=== PATIENT | male | born 1950 | race Caucasian/White ===

== ENCOUNTER 2023-04-02 13:05 | Outpatient (RCR) | payer MEDICARE, SELFPAY ==
--- NOTE | 2023-04-08 11:38 | OPREHPOC ---
Outpatient Therapy Plan of Care This is a Multidisciplinary Plan of Care that may contain components documented by all disciplines (PT, OT, and ST.) PT Problem 1 PT Problem #1 Knowledge Deficit PT Goal 1 Goal 1. independent and compliant with HEP Target Visit 6 PT Problem 2 PT Problem #2 Pain PT Goal 1 Goal 1. decrease pain to 4/10 or less in the R knee Target Visit 12 PT Goal 2 Goal 1. no pain in the R knee PT Problem 3 PT Problem #3 Impaired Range of Motion PT Goal 1 Goal 1. 0-120 degrees active R knee mobility. Target Visit 12 PT Problem 4 PT Problem #4 Impaired Strength PT Goal 1 Goal 1. patient to display no extension lag of the R hip during SLR 2. 4/5 R hip flexion 3. 4+/5 or better R knee flexion and extension Target Visit 12 PT Problem 5 PT Problem #5 Impaired Functional Mobil PT Goal 1 Goal 1. patient to transition to cane or less AD for ambulation 2. patient to ambulate with reciprocal mechanics and equal stance time/weight bearing 3. patient to ambulate up and down steps with reciprocal mechanics 4. patient to complete 6 minute walk test for 800ft or more without sitting rest Target Visit 12
--- NOTE | 2023-04-08 11:38 | PTOPEVAL1 ---
Assessment and note entered by JT File, PT Evaluation Information Assessment Status Evaluation Diagnosis OA of R knee, s/p R TKA Subjective Information patient had surgery on the R knee on 03/29/23. he reports since surgery he has had pain in the R knee, stiffness in the R knee, and difficulty walking. he reports he isl taking oxycodone for pain. he reports prior to surgery he was having difficulty walking. Assessment PT Clinical Summary mr. washburn is a 72 yo man who presents to skilled PT for evaluation and treatment s/p R TKA. he presents today jt swelling, pain, decreased R knee rom, decreased strength, and abnormal gait mechanics. he would like to get back to walking without an AD, and with no pain. he would benefit from continued skilled PT to address his objective /funcitonal defcits and progress towards a return to his prior level functional activity performance and quality of life. Plan of Care Interventions Electrical Stimulation,Gait Training,Hot Pack/Cold Pack,Intermittent Compression,Manual Therapy, Neuro Re-education,Patient/Caregiver Educati, Therapeutic Activities,Therapeutic Exercise PT Services Indicated Yes Treatment Frequency and 3x weekly for 12 visits Duration These treatments will address the objective and functional deficits as defined above. The patient will be advanced safely and appropriately in order for the patient to progress towards his/her prior level of function. Additional exercises will be introduced and as well as a comprehensive home exercise program upon discharge, if needed, ?to ensure carryover of functional gains achieved in the clinic. This treatment plan has been reviewed and agreement upon by the patient.
--- NOTE | 2023-04-29 07:22 | OPREHPOC ---
Outpatient Therapy Plan of Care This is a Multidisciplinary Plan of Care that may contain components documented by all disciplines (PT, OT, and ST.) PT Problem 1 PT Problem #1 Knowledge Deficit PT Goal 1 Goal 1. independent and compliant with HEP Target Visit 6 Progress Met PT Problem 2 PT Problem #2 Pain PT Goal 1 Goal 1. decrease pain to 4/10 or less in the R knee Target Visit 12 Progress Met PT Goal 2 Goal 1. no pain in the R knee Progress Not Met PT Problem 3 PT Problem #3 Impaired Range of Motion PT Goal 1 Goal 1. 0-120 degrees active R knee mobility. Target Visit 12 Progress Not Met PT Problem 4 PT Problem #4 Impaired Strength PT Goal 1 Goal 1. patient to display no extension lag of the R hip during SLR 2. 4/5 R hip flexion 3. 4+/5 or better R knee flexion and extension Target Visit 12 Progress Partially Met PT Problem 5 PT Problem #5 Impaired Functional Mobil PT Goal 1 Goal 1. patient to transition to cane or less AD for ambulation 2. patient to ambulate with reciprocal mechanics and equal stance time/weight bearing 3. patient to ambulate up and down steps with reciprocal mechanics 4. patient to complete 6 minute walk test for 800ft or more without sitting rest Target Visit 12 Progress Partially Met
--- NOTE | 2023-04-29 07:22 | PTOPPROGNS ---
Assessment and note entered by JT File, PT Evaluation Information Assessment Status Progress Diagnosis OA of R knee, s/p R TKA Subjective Information patient reports he is feeling better lately. he reports his pain is much more managed. he reports he only has increased pain in the R knee withe bending. Assessment PT Clinical Summary mr. washburn presents to skilled PT services for his 10th skilled PT visit today. he displas improved rom, improved strength, progression in gait mechanics, and decreased pain. however, he still lacks goals for R knee active rom, R LE strength, gait mechanics, and functional transition of steps . he would benefit from continued skilled PT to improve his objective/functional deficits and achieve all goals for skilled PT to improve his quality of life and funcitonal independence/ activity performance. Plan of Care Interventions Electrical Stimulation,Gait Training,Hot Pack/Cold Pack,Intermittent Compression,Manual Therapy, Neuro Re-education,Patient/Caregiver Educati, Therapeutic Activities,Therapeutic Exercise PT Services Indicated Yes Treatment Frequency and continue skilled PT per initial POC Duration These treatments will address the objective and functional deficits as defined above. The patient will be advanced safely and appropriately in order for the patient to progress towards his/her prior level of function. Additional exercises will be introduced and as well as a comprehensive home exercise program upon discharge, if needed, ?to ensure carryover of functional gains achieved in the clinic. This treatment plan has been reviewed and agreement upon by the patient.
--- NOTE | 2023-05-03 10:41 | PTOPEVAL1 ---
Assessment and note entered by Jerry Tanner Evaluation Information Assessment Status Progress Diagnosis OA of right knee, s/p R TKA Subjective Information Pt. reports that he is doing better, but was given a steroid from Dr. Chang last week. He states that he still gets twinges of pain, but he is improving. He is no longer using an AD. He states that he is still concerned with his inability to bend and straighten the knee and states that he would like to continue to improve ROM. Reported Pain Level Pain Score 1: Self Report Assessment PT Clinical Summary Mr. Blackwell has attended a total of 12 PT sessions. In this time progress has been noted in gait mechanics, strength and right knee ROM. Despite these improvements he continues to present with limitations in strength and ROM. Recommend continued skilled PT at a decreased frequency to continue to improve mobility and optimize gait for improved IADL performance. Plan of Care Interventions Electrical Stimulation,Gait Training,Hot Pack/Cold Pack,Intermittent Compression,Manual Therapy, Neuro Re-education,Patient/Caregiver Educati, Therapeutic Activities,Therapeutic Exercise PT Services Indicated Yes Treatment Frequency and Continue treatment 2x/week x 8 visits focusing on Duration further ROM presybeterian and imrpoving stair navigation and gait. These treatments will address the objective and functional deficits as defined above. The patient will be advanced safely and appropriately in order for the patient to progress towards his/her prior level of function. Additional exercises will be introduced and as well as a comprehensive home exercise program upon discharge, if needed, ?to ensure carryover of functional gains achieved in the clinic. This treatment plan has been reviewed and agreement upon by the patient.
--- NOTE | 2023-05-18 10:49 | OPREHPOC ---
Outpatient Therapy Plan of Care This is a Multidisciplinary Plan of Care that may contain components documented by all disciplines (PT, OT, and ST.) PT Problem 1 PT Problem #1 Knowledge Deficit PT Goal 1 Goal 1. independent and compliant with HEP Target Visit 6 Progress Met PT Problem 2 PT Problem #2 Pain PT Goal 1 Goal 1. decrease pain to 4/10 or less in the R knee Target Visit 12 Progress Met PT Goal 2 Goal 1. no pain in the R knee Progress Met PT Problem 3 PT Problem #3 Impaired Range of Motion PT Goal 1 Goal 1. 0-120 degrees active R knee mobility. Target Visit 12 Progress Partially Met Comment met for flexion PT Problem 4 PT Problem #4 Impaired Strength PT Goal 1 Goal 1. patient to display no extension lag of the R hip during SLR 2. 4/5 R hip flexion 3. 4+/5 or better R knee flexion and extension Target Visit 12 Progress Met PT Problem 5 PT Problem #5 Impaired Functional Mobil PT Goal 1 Goal 1. patient to transition to cane or less AD for ambulation 2. patient to ambulate with reciprocal mechanics and equal stance time/weight bearing 3. patient to ambulate up and down steps with reciprocal mechanics 4. patient to complete 6 minute walk test for 800ft or more without sitting rest Target Visit 12 Progress Met
--- NOTE | 2023-05-18 10:51 | PTOPDC ---
Assessment and note entered by Janet Fonseca DPT Evaluation Information Assessment Status Re-evaluation Diagnosis OA of right knee, s/p R TKA Subjective Information Patient reports this will be his last visit due to having finger surgery and then undergoing L TKA on 06/29/23. He reports he is improving and is not using an AD . He reports he notices stiffness with stairs. He reports he is independent with HEP Reported Pain Level Pain Score 0: Self Report Pain Score 1: Self Report Assessment PT Clinical Summary Mr. Blackwell was seen for 17 visits of skilled PT with great progress towards goals. He met all goals except for extension ROM. He ambulates with no AD and demonstrates step over step stair navigation. He is independent with HEP and will be discharged at this time. Plan of Care PT Services Indicated No
== END 2023-05-18 11:33 | disposition home or self-care (01) ==
LOC: CHSPT 13:05
PROVIDERS: PCP Family Medicine; Visit Provider Orthopaedic Surgery
DX: M17.11 Unilateral primary osteoarthritis, right knee (principal)
CPT/HCPCS: 97014; 97016; 97110; 97116; 97140; 97161; 97530; G0283

== ENCOUNTER 2023-07-02 09:31 | Outpatient (RCR) | payer MEDICARE, SELFPAY ==
--- NOTE | 2023-07-02 10:16 | OPREHPOC ---
Outpatient Therapy Plan of Care This is a Multidisciplinary Plan of Care that may contain components documented by all disciplines (PT, OT, and ST.) PT Problem 1 PT Problem #1 Knowledge Deficit PT Goal 1 Goal 1. independent and compliant with HEP Target Visit 6 PT Problem 2 PT Problem #2 Pain PT Goal 1 Goal 1. decrease pain at worst to 4/10 in the L knee. Target Visit 12 PT Problem 3 PT Problem #3 Impaired Range of Motion PT Goal 1 Goal 1. 0-120 degrees active L knee mobility Target Visit 12 PT Problem 4 PT Problem #4 Impaired Strength PT Goal 1 Goal 1. 4+/5 or better L knee strength 2. 5/5 L ankle DF 3. 3+/5 L hip strength or better 4. patient able to perform SLR of the L LE in supine with knee extension lag Target Visit 12 PT Problem 5 PT Problem #5 Impaired Functional Mobil PT Goal 1 Goal 1. transition to cane for ambulation Target Visit 6 PT Goal 2 Goal 1. patient to ambulate without any AD 2. normal gait mechanics 3. reciprocal gait mechanics up and down 12 steps with 1 hand rail 4. less than 20 degrees tightness of the L hamstrings 5. LEFS to display less than 40% functional deficits Target Visit 12
--- NOTE | 2023-07-02 10:17 | PTOPEVAL1 ---
Assessment and note entered by JT File, PT Evaluation Information Assessment Status Evaluation Diagnosis s/p L TKA Onset 06/28/23 Subjective Information patient underwent L TKA on 06/28/23. he reports he has not been doing much since surgery, but reports yesterday he did begin pushing the knee straight, performing glute sets, ankle pumps, and heel slides. he reports he would like to get back to walking without any AD. he had the R TKA on . he reports he would like to get back to walking without pain. he reports he would also like to be able to ambulate up and down steps. he has a cabin in [place] he would like to be able to visit. he also reports he has a 15 day trip planned this summer that will involve a lot of walking. Reported Pain Level Pain Score 9: Self Report Assessment PT Clinical Summary mr. washburn is a 72 yo man who presents to skilled PT for evaluation and treatment s/p L TKA. he has a history of R TKA in the past as well. he presents today with decreased L knee rom, weak L knee and hip strength, swelling/edema in the L LE, pain, and abnormal gait mechanics. he would benefit from continued skilled PT services to improve his objective/functional deficits and return to prior level functional activities and quality of life. Plan of Care Interventions Gait Training,Hot Pack/Cold Pack,Intermittent Compression,Manual Therapy,Neuro Re-education, Patient/Caregiver Educati,Therapeutic Activities, Therapeutic Exercise PT Services Indicated Yes Treatment Frequency and 3x weekly for 12 visits Duration These treatments will address the objective and functional deficits as defined above. The patient will be advanced safely and appropriately in order for the patient to progress towards his/her prior level of function. Additional exercises will be introduced and as well as a comprehensive home exercise program upon discharge, if needed, ?to ensure carryover of functional gains achieved in the clinic. This treatment plan has been reviewed and agreement upon by the patient.
--- NOTE | 2023-07-22 09:53 | OPREHPOC ---
Outpatient Therapy Plan of Care This is a Multidisciplinary Plan of Care that may contain components documented by all disciplines (PT, OT, and ST.) PT Problem 1 PT Problem #1 Knowledge Deficit PT Goal 1 Goal 1. independent and compliant with HEP Target Visit 6 Progress Met PT Problem 2 PT Problem #2 Pain PT Goal 1 Goal 1. decrease pain at worst to 4/10 in the L knee. Target Visit 18 Comment continue PT Problem 3 PT Problem #3 Impaired Range of Motion PT Goal 1 Goal 1. 0-120 degrees active L knee mobility Target Visit 18 Comment progressing PT Problem 4 PT Problem #4 Impaired Strength PT Goal 1 Goal 1. 4+/5 or better L knee strength 2. 5/5 L ankle DF 3. 3+/5 L hip strength or better 4. patient able to perform SLR of the L LE in supine with knee extension lag Target Visit 18 Comment progressing PT Problem 5 PT Problem #5 Impaired Functional Mobil PT Goal 1 Goal 1. transition to cane for ambulation Target Visit 6 Progress Met PT Goal 2 Goal 1. patient to ambulate without any AD met 2. normal gait mechanics 3. reciprocal gait mechanics up and down 12 steps with 1 hand rail 4. less than 20 degrees tightness of the L hamstrings 5. LEFS to display less than 40% functional deficits Target Visit 18 Comment progressing
--- NOTE | 2023-07-22 09:54 | PTOPPROG ---
Assessment and note entered by Janet Fonseca DPT Evaluation Information Assessment Status Progress Diagnosis s/p L TKA Onset 06/28/23 Subjective Information he reports that he has been having tenderness at the medial L knee. he reports pain is usually higher the day after PT. he is reports he is not using an AD. he reports some days he still has to do steps 1 at a time. he reports he is compliant with HEP Assessment PT Clinical Summary Mr. Blackwell has attended 10 visits of skilled PT with good progress towards goals. He demonstrates improved L knee and hip strength, -4-166 deg of L knee ROM and ambulation with no AD. He reports that he is able to ambulate stairs with step over step at times but still has times when he requires step to pattern. He reports ambulation has improved. He continues to report elevated pain levels at the L knee with most report of medial joint line pain. He will benefit from continued skilled PT to address remaining impairments and return to PLOF. Plan of Care Interventions Gait Training,Hot Pack/Cold Pack,Intermittent Compression,Manual Therapy,Neuro Re-education, Patient/Caregiver Educati,Therapeutic Activities, Therapeutic Exercise PT Services Indicated Yes Treatment Frequency and continue 3x weekly for 9 additional visits Duration These treatments will address the objective and functional deficits as defined above. The patient will be advanced safely and appropriately in order for the patient to progress towards his/her prior level of function. Additional exercises will be introduced and as well as a comprehensive home exercise program upon discharge, if needed, ?to ensure carryover of functional gains achieved in the clinic. This treatment plan has been reviewed and agreement upon by the patient.
== END 2023-08-16 10:44 | disposition home or self-care (01) ==
LOC: CHSPT 09:31
PROVIDERS: Visit Provider Orthopaedic Surgery
DX: Z47.1 Aftercare following joint replacement surgery (principal); Z96.651 Presence of right artificial knee joint
CPT/HCPCS: 97016; 97110; 97140; 97150; 97161; 97530